=== PATIENT | male | born 1960 | race Caucasian/White ===

== ENCOUNTER 2017-02-10 23:00 | Observation (INO) | payer OTHER ==
[~2017-02-10] VITALS: Ht 203.2 cm; Wt 144.6 kg
[2017-02-10 23:07] VITALS: BP 172/104; PULSE 88; RESP 20; TEMP 98.3; O2SAT 98
[2017-02-10 23:45] VITALS: BP_SYST 163; BP_SYST 172; BP_DIAS 90; BP_DIAS 93; PULSE 84
[2017-02-10 23:46] VITALS: BP 165/93; PULSE 78; RESP 16; O2SAT 99
[2017-02-10] MEDS ORDERED: NITROGLYCERIN 0.4 MG SL 25 TABS/BTL SL ONE (23:52)
[2017-02-10 23:55] VITALS: BP 163/93; PULSE 85
[2017-02-10] MEDS: SODIUM CHLOR 0.9% 1000 ML INJ 1,000 ML IV SCH (23:58)
[2017-02-11] VITALS (14 sets, daily range): BP systolic 121–153; BP diastolic 1–95; PULSE 56–89; RESP 16–20; TEMP 96.8; O2SAT 97–98
[2017-02-11] MEDS ORDERED: ASPIRIN 81 MG CHEW TAB PO ONE
[2017-02-11 00:21] LABS: AUTOMATED NEUTROPHIL # 6.3 TH/MM3 (1.8-7.7); BASOPHIL # 0.1 TH/MM3 (0-0.2); BASOPHIL % 1.2 % (0.0-2.0); EOSINOPHIL # 0.2 TH/MM3 (0-0.4); EOSINOPHIL % 2.3 % (0.0-4.0); HEMATOCRIT 47.5 % (39.0-51.0); HEMO FLAGS DIFF FINAL; LYMPH % 21.9 % (9.0-44.0); MEAN CELL VOLUME 89.4 FL (80.0-100.0); MEAN CORPUSCULAR HGB CONC 33.5 % (32.0-36.0); MONO % 7.8 % (0.0-8.0); NEUT % 66.8 % (16.0-70.0); PLATELET COUNT 241 TH/MM3 (150-450); RED BLOOD COUNT 5.31 MIL/MM3 (4.50-5.90); RED CELL DISTRIBUTION WIDTH 12.9 % (11.6-17.2); WHITE BLOOD COUNT 9.3 TH/MM3 (4.0-11.0)
[2017-02-11] MEDS: NITROGLYCERIN 0.4 MG SL 25 TABS/BTL SL SCH ×3 (00:25→00:35)
[2017-02-11 00:29] LABS: CHLORIDE 101 MEQ/L (98-107); POTASSIUM 3.9 MEQ/L (3.5-5.1); SODIUM (NA) 137 MEQ/L (136-145)
[2017-02-11 00:33] LABS: APTT (PATIENT) 29.1 SEC (24.3-30.1); PROTHROMBIN TIME - PATIENT 10.6 SEC (9.8-11.6)
--- NOTE | 2017-02-11 00:36 | RADRPT ---
EXAM DATE/TIME: 02/11/2017 00:09 [facility] COMPARISON: No previous studies available for comparison. INDICATIONS : Chest tightness. MEDICAL HISTORY : None. SURGICAL HISTORY : None. ENCOUNTER: Initial ACUITY: 1 day PAIN SCORE: 3/10 LOCATION: Bilateral chest FINDINGS: A single view of the chest demonstrates the lungs to be symmetrically aerated without evidence of mas s, infiltrate or effusion. The cardiomediastinal contours are unremarkable. Osseous structures are intact. CONCLUSION: No evidence of acute cardiopulmonary disease. Will West MD on February 11, 2017 at 0:34 Board Certified Radiologist. This report was verified electronically.
--- NOTE | 2017-02-11 00:43 | PD ---
HPI Chief Complaint: Chest Pain Time Seen by Provider: 23:53 Travel History International Travel<30 days: No Contact w/Intl Traveler<30days: No Traveled to known affect area: No History of Present Illness HPI 57-year-old male presents to the emergency department by private transportation the care of his spouse for evaluation of retrosternal chest pressure 6/10 in intensity for the past several hours. Patient's had no associated nausea vomiting shortness of breath sweats or referred neck jaw shoulder arm pain; patient did experience some back discomfort. Patient denies abdominal pain. Patient is unable to identify exacerbating or alleviating factors. Patient is not a tobacco user. Patient has history of hypothyroidism and takes Synthroid but no other medical history. Patient has taken no aspirin. Patient did take a one-time dose of Aleve PFSH Past Medical History Narrative Medical Hypothyroidism thyroidectomy no tobacco use nursing notes reviewed ?: Not Past Surgical History Other Surgery: Yes (THYROID REMOVED) Social History Alcohol Use: Yes Tobacco Use: No Substance Use: No Allergies-Medications (Allergen,Severity, Reaction): Coded Allergies: No Known Allergies (Unverified , 02/10/17) Reported Meds & Prescriptions Reported Meds & Active Scripts Active Reported Synthroid (Levothyroxine Sodium) 75 Mcg Tab 75 Mcg PO DAILY Narrative Medication Thyroid medication Review of Systems Except as stated in HPI: all other systems reviewed are Neg General / Constitutional: No: Fever, Chills HENT: No: Congestion Cardiovascular: Positive: Chest Pain or Discomfort Respiratory: No: Cough, Shortness of Breath, Wheezing Gastrointestinal: No: Nausea, Vomiting Genitourinary: No: Flank Pain Musculoskeletal: No: Myalgias, Arthralgias Skin: No Rash Neurologic: No: Weakness Psychiatric: No: Anxiety, Depression Endocrine: No: Heat Intolerance Hematologic/Lymphatic: No: Easy Bruising Physical Exam Narrative GENERAL: Well-developed well-nourished male in no acute distress no respiratory distress SKIN: Warm and dry. HEAD: Normocephalic. EYES: No scleral icterus. No injection or drainage. NECK: Supple, trachea midline. No JVD or lymphadenopathy. CARDIOVASCULAR: Regular rate and rhythm without murmurs, gallops, or rubs. RESPIRATORY: Breath sounds equal bilaterally. No accessory muscle use. GASTROINTESTINAL: Abdomen soft, non-tender, nondistended. MUSCULOSKELETAL: No cyanosis, or edema. BACK: Nontender without obvious deformity. No CVA tenderness. Data Data Last Documented VS Vital Signs Date Time Temp Pulse Resp B/P (MAP) Pulse Ox O2 Delivery O2 Flow Rate FiO2 02/11/17 01:00 97 Nasal Cannula 2.00 02/11/17 01:00 56 16 132/78 (96) 02/10/17 23:07 98.3 Orders Orders Nitroglycerin Sl (Nitrostat Sl) (02/10/17 23:52) Electrocardiogram (02/10/17 23:53) Ckmb (Isoenzyme) Profile (02/10/17 23:53) Complete Blood Count With Diff (02/10/17 23:53) Comprehensive Metabolic Panel (02/10/17 23:53) Magnesium (Mg) (02/10/17:53) Prothrombin Time / Inr (Pt) (02/10/17 23:53) Act Partial Throm Time (Ptt) (02/10/17 23:53) Troponin I (02/10/17 23:53) Chest, Single Ap (02/10/17 23:53) Ecg Monitoring (02/10/17 23:53) Bilateral Bp Monitoring (02/10/17 23:53) Iv Access Insert/Monitor (02/10/17 23:53) Oximetry (02/10/17 23:53) Oxygen Administration (02/10/17 23:53) Aspirin Chew (Aspirin Chew) (02/11/17 00:00) Sodium Chloride 0.9% Flush (Ns Flush) (02/11/17 00:00) Nitroglycerin Sl (Nitrostat Sl) (02/11/17 00:00) Sodium Chlor 0.9% 1000 Ml Inj (Ns 1000 M (02/11/17 00:00) Lipase (02/10/17 23:53) Ondansetron Inj (Zofran Inj) (02/11/17 00:45) Morphine Inj (Morphine Inj) (02/11/17 00:45) CKMB (02/10/17 23:50) CKMB% (02/10/17 23:50) Calcium Gluconate Inj (Calcium Gluconate (02/11/17 01:15) Nitroglycerin 2% Oint (Nitroglycerin 2% (02/11/17 01:15) Hydromorphone Pf Inj (Dilaudid Pf Inj) (02/11/17 01:15) Cta Thor Abd Aorta W Iv C W3d (02/11/17 ) Place In Observation (02/11/17 ) Vital Signs (Adult) Q4H (02/11/17 01:22) Activity Oob With Assistance (02/11/17 01:22) Behavior Clinician / Telemetry .CONTINUOUS (02/11/17 01:22) Diet Npo (02/11/17 Breakfast) Sodium Chloride 0.9% Flush (Ns Flush) (02/11/17 01:30) Sodium Chloride 0.9% Flush (Ns Flush) (02/11/17 09:00) Basic Metabolic Panel (Bmp) (02/12/17 06:00) Complete Blood Count With Diff (02/12/17 06:00) Creatine Kinase (Cpk) (02/11/17 06:00) Creatine Kinase (Cpk) (02/11/17 12:00) Troponin I (02/11/17 06:00) Troponin I (02/11/17 12:00) Electrocardiogram (02/11/17 06:00) Electrocardiogram (02/11/17 12:00) Naloxone Inj (Narcan Inj) (02/11/17 01:30) Basic Metabolic Panel (Bmp) (02/11/17 06:00) Labs Laboratory Tests Test 02/10/17 23:50 White Blood Count 9.3 TH/MM3 Red Blood Count 5.31 MIL/MM3 Hemoglobin 15.9 GM/DL Hematocrit 47.5 % Mean Corpuscular Volume 89.4 FL Mean Corpuscular Hemoglobin 30.0 PG Mean Corpuscular Hemoglobin Concent 33.5 % Red Cell Distribution Width 12.9 % Platelet Count 241 TH/MM3 Mean Platelet Volume 7.6 FL Neutrophils (%) (Auto) 66.8 % Lymphocytes (%) (Auto) 21.9 % Monocytes (%) (Auto) 7.8 % Eosinophils (%) (Auto) 2.3 % Basophils (%) (Auto) 1.2 % Neutrophils # (Auto) 6.3 TH/MM3 Lymphocytes # (Auto) 2.0 TH/MM3 Monocytes # (Auto) 0.7 TH/MM3 Eosinophils # (Auto) 0.2 TH/MM3 Basophils # (Auto) 0.1 TH/MM3 CBC Comment DIFF FINAL Differential Comment Prothrombin Time 10.6 SEC Prothromb Time International Ratio 1.0 RATIO Activated Partial Thromboplast Time 29.1 SEC Blood Urea Nitrogen 17 MG/DL Creatinine 1.30 MG/DL Random Glucose 117 MG/DL Total Protein 7.2 GM/DL Albumin 3.5 GM/DL Calcium Level 7.4 MG/DL Magnesium Level 2.1 MG/DL Alkaline Phosphatase 94 U/L Aspartate Amino Transf (AST/SGOT) 15 U/L Alanine Aminotransferase (ALT/SGPT) 25 U/L Total Bilirubin 0.4 MG/DL Sodium Level 137 MEQ/L Potassium Level 3.9 MEQ/L Chloride Level 101 MEQ/L Carbon Dioxide Level 30.4 MEQ/L Anion Gap 6 MEQ/L Estimat Glomerular Filtration Rate 57 ML/MIN Protein Corrected Calcium 7.4 MG/DL Total Creatine Kinase 305 U/L Creatine Kinase MB 4.6 NG/ML Troponin I LESS THAN 0.02 NG/ML Lipase 148 U/L MDM Medical Decision Making Medical Screen Exam Complete: Yes Emergency Medical Condition: Yes Medical Record Reviewed: Yes Interpretation(s) EKG: Normal sinus rhythm rate [address] elevation or injury pattern change noted EKG #2: Sinus bradycardia rate [address] elevation or ectopy or injury pattern noted CK: 305, wnl; mb%: 1.5% not elevated troponin I: 0.02, not elevated CBC & BMP Diagram 02/10/17 23:50 Total Protein 7.2, Albumin 3.5, Calcium Level 7.4 *L, Magnesium Level 2.1, Alkaline Phosphatase 94, Aspartate Amino Transf (AST/SGOT) 15, Alanine Aminotransferase (ALT/SGPT) 25, Total Bilirubin 0.4 coags: wnl CXR: nad @ 03:20 CTA aorta: FINDINGS: Thoracic and abdominal portions of the aorta are tortuous. No aneurysm or dissection. No significant atherosclerotic disease. Normal heart size. No pathologic lymphadenopathy. No infiltrate, effusion or pneumothorax seen in the lungs. Numerous 10-17 mm stones are seen in the gallbladder. No ductal stone or ductal dilatation. The liver, spleen, pancreas, adrenal glands and kidneys are within normal limits. No obstruction or acute inflammatory changes are seen of the gastrointestinal tract. CONCLUSION: No acute abnormality demonstrated. No aneurysm or dissection of the aorta. Cholelithiasis incidentally noted. Will West MD on February 11, 2017 at 3:02 Board Certified Radiologist. This report was verified electronically. Differential Diagnosis Chest pain, ACS, MA, esophageal spasm, aortic dissection, aortic aneurysm, biliary colic, pancreatitis, chest pain, peptic ulcer disease; also to consider pneumothorax Narrative Course Patient placed on surveillance monitor and pulse oximeter IV access obtained specimens collected and sent for resulting EKG ordered reveals sinus rhythm with no acute ST segment elevation or injury pattern change Patient administered aspirin 162 mg along with sublingual nitroglycerin 0.4 mg After first void nitroglycerin pain has decreased to 2-3/10 in intensity CBC is automated differential values are normal range cxr: No mediastinal widening no acute process noted Patient with ongoing pain after morphine sulfate pain is 1/10 in intensity continues to deny any abdominal pain abdomen remains nontender Patient's case discussed with on-call medicine for admission for chest pain possible ischemic related as well as hypocalcemia and is aware of ordered CTA thoracic abdominal aorta which is pending; patient will be admitted for chest pain and hypocalcemia Patient is return from CT; pain 1/10 non-tender abdomen CT resulted and is negative for dissection or aneurysm patient noted to have incidental finding of cholelithiasis without inflammatory changes Physician Communication Physician Communication discussed with Dr Salmeron --obs Diagnosis Primary Impression: Chest pain Qualified Codes: R07.2 - Precordial pain Additional Impression: Hypocalcemia Admitting Information Admitting Physician Requests: Observation Janice Bhakta MD Feb 11, 2017 00:43
[2017-02-11] MEDS ORDERED: LEVO.075 PO (00:44)
[2017-02-11] MEDS ORDERED: ONDANSETRON HCL 4 MG/2 ML VIAL IV PUSH ONE (00:45)
[2017-02-11] MEDS ORDERED: MORPHINE SULFATE 4 MG/ML INJ IV PUSH ONE (00:45)
[2017-02-11 00:48] LABS: ALKALINE PHOSPHATASE 94 U/L (45-117); ALT (GPT) 25 U/L (12-78); ANION GAP 6 MEQ/L (5-15); AST (GOT) 15 U/L (15-37); BICARBONATE 30.4 MEQ/L (21.0-32.0); BLOOD UREA NITROGEN 17 MG/DL (7-18); CREATINE KINASE 305 U/L (39-308); GLOMERULAR FILTRATION RATE 57 ML/MIN (>89); MAGNESIUM 2.1 MG/DL (1.5-2.5); TOTAL BILIRUBIN ADULT 0.4 MG/DL (0.2-1.0)
[2017-02-11 00:49] LABS: CALCIUM-PROTEIN CORRECTED 7.4 MG/DL (8.5-10.1)
[2017-02-11] MEDS ORDERED: NITROGLYCERIN 2% OINT 1 GM PACKET TOPICAL ONE (01:15)
[2017-02-11] MEDS ORDERED: CALCIUM GLUCONATE INJ 1 GM in DEXTROSE 5% IN WATER 100ML INJ 100 ML IV ONE ×2 (01:15)
[2017-02-11] MEDS ORDERED: HYDROmorphone HCL PF 1 MG/ML VIAL IV PUSH ONE (01:15)
[2017-02-11 01:18] LABS: CKMB 4.6 NG/ML (0.5-3.6)
[2017-02-11] MEDS ORDERED: CALCIUM CARBONATE 1.25 GM (CA 500 MG) TAB PO ONE (01:30)
[2017-02-11] MEDS ORDERED: NALOXONE HCL 0.4 MG/ML AMP IV PUSH PRN (01:30)
[2017-02-11] MEDS ORDERED: SODIUM CHLORIDE 0.9% FLUSH 10 ML FLUSH IV FLUSH PRN (01:30)
[2017-02-11] MEDS ORDERED: IOHEXOL 350 MG/ML 10 ML VIAL (for RAD DIAG) IVCONTRAST ONE (02:43)
[2017-02-11] MEDS ORDERED: SODIUM CHLORIDE 0.9% FLUSH 10 ML FLUSH IVF PRN ×2 (02:45)
--- NOTE | 2017-02-11 03:07 | RADRPT ---
EXAM DATE/TIME: 02/11/2017 02:04 [facility] COMPARISON: CHEST SINGLE AP, February 11, 2017, 0:09. INDICATIONS : Reetrosternal chest pain. IV CONTRAST: 75 cc Omnipaque 350 (iohexol) IV RADIATION DOSE: 22.58 CTDIvol (mGy) MEDICAL HISTORY : None SURGICAL HISTORY : None. ENCOUNTER: Initial ACUITY: 1 day PAIN SCALE: 2/10 LOCATION: chest retrosternal TECHNIQUE: Volumetric scanning was performed using a multi-row detector CT scanner. The data was post processed with a variety of visualization algorithms including full volume maximum intensity projection, multi -planar sliding thin slab reformation, curved planar reformation, and surface rendering techniques. Using automated exposure control and adjustment of the mA and/or kV according to patient size, radiat ion dose was kept as low as reasonably achievable to obtain optimal diagnostic quality images. DICOM format image data is available electronically for review and comparison. FINDINGS: Thoracic and abdominal portions of the aorta are tortuous. No aneurysm or dissection. No significant atherosclerotic disease. Normal heart size. No pathologic lymphadenopathy. No infiltrate, effusion or pneumothorax seen in the lungs. Numerous 10-17 mm stones are seen in the gallbladder. No ductal stone or ductal dilatation. The liver , spleen, pancreas, adrenal glands and kidneys are within normal limits. No obstruction or acute infl ammatory changes are seen of the gastrointestinal tract. CONCLUSION: No acute abnormality demonstrated. No aneurysm or dissection of the aorta. Cholelithiasis incidentall y noted. Will West MD on February 11, 2017 at 3:02 Board Certified Radiologist. This report was verified electronically.
[2017-02-11] MEDS ORDERED: KETOROLAC TROMETHAMINE 30 MG/ML (IVP) VIAL IV PUSH ONE (03:45)
[2017-02-11] MEDS ORDERED: LEVOTHYROXINE SODIUM 75 MCG TAB PO SCH (06:00)
[2017-02-11 06:25] LABS: CHLORIDE 103 MEQ/L (98-107); POTASSIUM 4.5 MEQ/L (3.5-5.1); SODIUM (NA) 136 MEQ/L (136-145)
[2017-02-11 07:00] LABS: ANION GAP 4 MEQ/L (5-15); BICARBONATE 28.9 MEQ/L (21.0-32.0); BLOOD UREA NITROGEN 17 MG/DL (7-18); CREATINE KINASE 223 U/L (39-308); GLOMERULAR FILTRATION RATE 57 ML/MIN (>89)
[2017-02-11 07:22] LABS: CALCIUM-PROTEIN CORRECTED 7.7 MG/DL (8.5-10.1)
[2017-02-11] MEDS: SODIUM CHLOR 0.9% 1000 ML INJ 1,000 ML IV SCH (08:43)
[2017-02-11] MEDS ORDERED: SODIUM CHLORIDE 0.9% FLUSH 10 ML FLUSH IV FLUSH SCH ×2 (09:00)
[2017-02-11] MEDS ORDERED: CALCIUM CARBONATE 1.25 GM (CA 500 MG) TAB PO SCH (09:00)
--- NOTE | 2017-02-11 09:54 | EKG ---
Date Performed: 02/11/2017 Time Performed: 05:55:25 PTAGE: 57 years EKG: Sinus rhythm NORMAL ECG PREVIOUS TRACING : 02/11/2017 00.55 DOCTOR: Daniel Levine Interpretating Date/Time 02/11/2017 09:52:58
--- NOTE | 2017-02-11 10:06 | EKG ---
Date Performed: 02/11/2017 Time Performed: 00:55:59 PTAGE: 57 years EKG: SINUS BRADYCARDIA BORDERLINE ECG PREVIOUS TRACING : 02/10/2017 23.11 DOCTOR: Daniel Levine Interpretating Date/Time 02/11/2017 10:04:39
--- NOTE | 2017-02-11 10:08 | EKG ---
Date Performed: 02/10/2017 Time Performed: 23:11:17 PTAGE: 57 years EKG: Sinus rhythm NORMAL ECG NO PREVIOUS TRACING DOCTOR: Daniel Levine Interpretating Date/Time 02/11/2017 10:06:09
[2017-02-11] MEDS ORDERED: PROT40TA PO (10:29)
[2017-02-11] MEDS ORDERED: PANTOPRAZOLE SOD 40 MG DELAYED RELEASE TAB PO SCH (10:30)
--- NOTE | 2017-02-11 10:30 | HHI.DCPOC ---
Discharge Care Plan Diagnosis: (1) Chest pain, atypical (2) Dyspepsia Goals to Promote Your Health * To prevent worsening of your condition and complications * To maintain your health at the optimal level Directions to Meet Your Goals Take your medications as prescribed Follow your dietary instruction Follow activity as directed Keep your appointments as scheduled Take your immunizations and boosters as scheduled If your symptoms worsen call your PCP, if no PCP go to Urgent Care Center or Emergency Room Smoking is Dangerous to Your Health. Avoid second hand smoke Call the 24-hour hour crisis hotline for domestic abuse at Kassi Richey MD Feb 11, 2017 10:30
--- NOTE | 2017-02-11 12:19 | HHI.HP ---
[facility]Staff Admission Diagnosis chest pain; hypocalcemia Diagnoses: Chief Complaint: Chest discomfort Travel History International Travel<30 Days: No Contact w/Intl Traveler <30 Da: No Traveled to Known Affected Are: No History of Present Illness This patient is a 57-year-old gentleman who had onset of prolonged chest pressure after eating a heavy meal. Said the pain was not specifically pain was more tightness and pressure after he ate. He tried to move and took some Aleve with minimal relief. He probably came to the emergency room for further evaluation. Here his EKG and cardiac enzymes have been quite unalarming and the patient's discomfort resolved with Dilaudid. He says he had some upcoming nausea. Previously had been taking an H2 jack for dyspepsia but had stopped since he had started C Pap recently. He reports that he sleeps so well he doesn 't know if he has reflux at all. The patient incidentally had some gallstones on his CT and that he was made aware of this. He does drink beer frequently. He does not exercise but does yard work very regularly without chest discomfort. He is visiting from [place] with his . He reports seeing his primary olive grader due to thyroidectomy but has seen a brewing technician last year for cardiac stress test prior to his surgery. The patient notes no previous cardiac problems. Both of his parents lived into their 80s without any cardiac illness which was premature. This patient's pain has been resolved with Dilaudid and with rest. He notes no further episodes. Discharge plans were discussed with the patient and he would like to follow-up with his brewing technician and his primary care provider in [place]. Review of Systems Constitutional: DENIES: Diaphoretic episodes, Fatigue, Fever, Weight gain, Weight loss, Chills, Dizziness, Change in appetite, Night Sweats Endocrine: DENIES: Heat/cold intolerance, Polydipsia, Polyuria, Polyphagia Eyes: DENIES: Blurred vision, Diplopia, Eye inflammation, Eye pain, Vision loss , Photosensitivity, Double Vision Ears, nose, mouth, throat: DENIES: Tinnitus, Hearing loss, Vertigo, Nasal discharge, Oral lesions, Throat pain, Hoarseness, Ear Pain, Running Nose, Epistaxis, Sinus Pain, Toothache, Odynophagia Respiratory: DENIES: Apneas, Cough, Snoring, Wheezing, Hemoptysis, Sputum production, Shortness of breath Cardiovascular: COMPLAINS OF: Chest pain, DENIES: Palpitations, Syncope, Dyspnea on Exertion, PND, Lower Extremity Edema, Orthopnea, Claudication Gastrointestinal: DENIES: Abdominal pain, Black stools, Bloody stools, Constipation, Diarrhea, Nausea, Vomiting, Difficulty Swallowing, Anorexia Genitourinary: DENIES: Sexual dysfunction, Urinary frequency, Urinary incontinence, Urgency, Hematuria, Dysuria, Nocturia, Penile Discharge, Testicular Pain, Testicular Swelling Musculoskeletal: DENIES: Joint pain, Muscle aches, Stiffness, Joint Swelling, Back pain, Neck pain Hematologic/lymphatic: DENIES: Bruising, Lymphadenopathy Immunologic/allergic: DENIES: Eczema, Urticaria Neurologic: DENIES: Abnormal gait, Headache, Localized weakness, Paresthesias, Seizures, Speech Problems, Tremor, Poor Balance Except as stated in HPI: all other systems reviewed are Neg Past Family Social History Past Medical History Gallstones, hypothyroidism disorder Past Surgical History Thyroidectomy Reported Medications Reviewed in the medical record, no new medications Allergies: Coded Allergies: No Known Allergies (Unverified , 02/10/17) Active Ordered Medications Reviewed in the medical record Family History Father at age 80 and had a heart bypass at age 79 Mother at 84 Social History , no tobacco alcohol daily, exercises infrequently, does yard work weekly Physical Exam Vital Signs Vital Signs Date Time Temp Pulse Resp B/P (MAP) Pulse Ox O2 Delivery O2 Flow Rate FiO2 02/11/17 08:00 96.8 68 20 150/90 (110) 98 02/11/17 07:15 59 16 121/67 (85) 96 02/11/17 06:10 89 16 127/77 (94) 98 Nasal Cannula 2.00 02/11/17 04:13 98 Nasal Cannula 2.00 02/11/17 04:13 75 16 138/77 (97) 98 02/11/17 02:56 89 16 140/75 (96) 97 Nasal Cannula 2.00 02/11/17 01:30 68 138/92 (107) 02/11/17 01:00 97 Nasal Cannula 2.00 02/11/17 01:00 56 16 132/78 (96) 02/11/17 00:45 63 130/70 (90) 02/11/17 00:35 65 125/78 (94) 02/11/17 00:29 77 134/78 (96) 02/11/17 00:25 69 151/95 (113) 02/11/17 00:10 153/89 (110) 02/11/17 00:05 74 132/83 (99) 02/11/17 00:00 71 148/81 (103) 02/10/17 23:55 85 163/93 (116) 02/10/17 23:46 78 16 165/93 (117) 99 Room Air 02/10/17 23:45 98 Nasal Cannula 2.00 02/10/17 23:45 84 172/90 (117) 163/93 (116) 02/10/17 23:07 98.3 88 20 172/104 (126) 98 Physical Exam GENERAL: This is a well-nourished, well-developed patient, in no apparent distress. SKIN: No rashes, ecchymoses or lesions. Cool and dry. HEAD: Atraumatic. Normocephalic. No temporal or scalp tenderness. EYES: Pupils equal round and reactive. Extraocular motions intact. No scleral icterus. No injection or drainage. ENT: Nose without bleeding, purulent drainage or septal hematoma. Throat without erythema, tonsillar hypertrophy or exudate. Uvula midline. Airway patent. NECK: Trachea midline. No JVD or lymphadenopathy. Supple, nontender, no meningeal signs. CARDIOVASCULAR: Regular rate and rhythm without murmurs, gallops, or rubs. RESPIRATORY: Clear to auscultation. Breath sounds equal bilaterally. No wheezes , rales, or rhonchi. GASTROINTESTINAL: Abdomen soft, non-tender, nondistended. No hepato-splenomegaly , or palpable masses. No guarding. MUSCULOSKELETAL: Extremities without clubbing, cyanosis, or edema. No joint tenderness, effusion, or edema noted. No calf tenderness. Negative Homans sign bilaterally. NEUROLOGICAL: Awake and alert. Cranial nerves II through XII intact. Motor and sensory grossly within normal limits. Five out of 5 muscle strength in all muscle groups. Normal speech. Laboratory Laboratory Tests Test 02/10/17 23:50 02/11/17 06:00 White Blood Count 9.3 Red Blood Count 5.31 Hemoglobin 15.9 Hematocrit 47.5 Mean Corpuscular Volume 89.4 Mean Corpuscular Hemoglobin 30.0 Mean Corpuscular Hemoglobin Concent 33.5 Red Cell Distribution Width 12.9 Platelet Count 241 Mean Platelet Volume 7.6 Neutrophils (%) (Auto) 66.8 Lymphocytes (%) (Auto) 21.9 Monocytes (%) (Auto) 7.8 Eosinophils (%) (Auto) 2.3 Basophils (%) (Auto) 1.2 Neutrophils # (Auto) 6.3 Lymphocytes # (Auto) 2.0 Monocytes # (Auto) 0.7 Eosinophils # (Auto) 0.2 Basophils # (Auto) 0.1 CBC Comment DIFF FINAL Differential Comment Prothrombin Time 10.6 Prothromb Time International Ratio 1.0 Activated Partial Thromboplast Time 29.1 Blood Urea Nitrogen 17 17 Creatinine 1.30 1.30 Random Glucose 117 126 Total Protein 7.2 6.2 Albumin 3.5 Calcium Level 7.4 7.2 Magnesium Level 2.1 Alkaline Phosphatase 94 Aspartate Amino Transf (AST/SGOT) 15 Alanine Aminotransferase (ALT/SGPT) 25 Total Bilirubin 0.4 Sodium Level 137 136 Potassium Level 3.9 4.5 Chloride Level 101 103 Carbon Dioxide Level 30.4 28.9 Anion Gap 6 4 Estimat Glomerular Filtration Rate 57 57 Protein Corrected Calcium 7.4 7.7 Total Creatine Kinase 305 223 Creatine Kinase MB 4.6 Troponin I LESS THAN 0.02 LESS THAN 0.02 Lipase 148 Result Diagram: 02/10/17234902/11/17 0600 Imaging Last Impressions Aorta CTA 02/11/17 0000 Signed Impressions: Service Date/Time: Saturday, February 11, 2017 02:04 - CONCLUSION: No acute abnormality demonstrated. No aneurysm or dissection of the aorta. Cholelithiasis incidentally noted. Will West MD Chest X-Ray 02/10/17 [id number] Signed Impressions: Service Date/Time: Saturday, February 11, 2017 00:09 - CONCLUSION: No evidence of acute cardiopulmonary disease. Will West MD Assessment and Plan Problem List: (1) Chest pain, atypical ICD Code: R07.89 - Other chest pain Plan: Atypical chest discomfort which is likely GI related. Patient has a history of dyspepsia. Pain did recur after heavy and fatty meal. Patient's pain is subsided. Cardiac enzymes are unremarkable. Patient had a stress test completed within the last year by his primary brewing technician in [place]. He would not like further testing done as he is out of town. I did review his EKG and cardiac enzymes with the patient and his . At this point it does to appear to be noncardiac chest pain which would work further evaluation and a short-term evaluation on a PPI. Patient is agreeable to this plan Patient does have a symptom medical's at this point. I do not believe his pain is related to the gallstones although this may be further investigated through his primary care physician's office Assessment and Plan atypical chest discomfort, likely GI Discharge home on PPI Follow-up with primary care provider Diet heart healthy Code Status Full code Discussed Condition With Patient, spouse Kassi Richey MD Feb 11, 2017 12:19
== END 2017-02-11 11:40 | disposition home or self-care (01) ==
LOC: PHED 23:00 → PHEDA 02-11 01:25 → PHEDH 02-11 06:34 → PH3A 02-11 07:39
PROVIDERS: ADMIT Hospitalist; ATTEND Hospitalist
DX: R07.89 Other chest pain (principal); E83.51 Hypocalcemia; R07.2 Precordial pain; R00.1 Bradycardia, unspecified; E03.9 Hypothyroidism, unspecified; R10.13 Epigastric pain; K80.20 Calculus of gallbladder without cholecystitis without obstruction; Z79.899 Other long term (current) drug therapy
CPT/HCPCS: 71010; 71275; 74174; 80048; 80053; 82550; 82552; 83690; 83735; 84155; 84484; 85025; 85610; 85730; 93005; 96361; 96365; 96375; 96376; G0378; J0610; J1170; J1885; J2270; J2405; J7030; Q9967